=== PATIENT | male | born 1930 | race Hispanic/Latino ===

== ENCOUNTER 2017-07-11 13:58 | Emergency (ER) | payer MEDICARE, OTHER ==
--- NOTE | 2017-07-11 15:36 | Emergency Department Report ---
ED General Adult HPI - General Chief complaint: Upper Respiratory Infection Stated complaint: SICK/DARK SPUTUM Time Seen by Provider: 07/11/17 15:11 Source: EMS Mode of arrival: Ambulatory Limitations: No Limitations - History of Present Illness Initial comments: History obtained from caregiver. For the past week, patient has had a productive dark cough. Denying shortness of breath. Afebrile. His home health physician when him to come to the ER to be checked out. Denies changes in his breathing. Says that sometimes he has a tightness on the right side of his chest. It is intermittent , nonradiating, nonexertional, nonpleuritic, not affected by food. He says that he sat up for a while. Severity scale (0 -10): 0 - Related Data Home Medications Medication Instructions Recorded Confirmed Last Taken Carvedilol [Coreg] 25 mg PO BID 11/28/12 08/07/13 Unknown Gabapentin [Neurontin] 900 mg PO QPM 11/28/12 08/07/13 Unknown Levothyroxine [Synthroid] 0.75 mcg PO DAILY 11/28/12 08/07/13 Unknown Tamsulosin [Flomax] 0.8 mg PO QDAY 11/28/12 08/07/13 Unknown amLODIPine [Norvasc] 5 mg PO DAILY 11/28/12 08/07/13 Unknown Cholecalciferol (Vitamin D3) 2,000 unit PO QDAY 08/07/13 08/07/13 Unknown [Vitamin D3 2,000 unit] Ferrous Sulfate [Iron Supplement 325 mg PO DAILY 08/07/13 08/07/13 Unknown 325 Mg tab] Furosemide [Lasix] 20 mg PO DAILY 08/07/13 08/07/13 Unknown Polyethylene Glycol 3350 [Miralax 17 gm PO DAILY PRN 08/07/13 08/07/13 Unknown 3350] Potassium Chloride [K-Dur] 10 meq PO QDAY 08/07/13 08/07/13 Unknown traZODone [Desyrel] 100 mg PO QHS 08/07/13 08/07/13 Unknown Previous Rx's Medication Instructions Recorded Last Taken Type Albuterol Sulfate [Proventil HFA] 2 puff IH Q6H PRN #1 hfa.aer.ad 08/13/13 Unknown Rx Doxycycline [Vibramycin CAP] 100 mg PO BID #14 capsule 08/13/13 Unknown Rx Allergies Allergy/AdvReac Type Severity Reaction Status Date / Time No Known Allergies Allergy Unverified 11/28/12 12:31 ED Review of Systems ROS: Stated complaint: SICK/DARK SPUTUM Other details as noted in HPI Comment: All other systems reviewed and negative Respiratory: cough Cardiovascular: chest pain ED Past Medical Hx - Past Medical History Previous Medical History?: Yes Hx Hypertension: Yes Hx CVA: Yes (Right side deficit) Hx Heart Attack/AMI: No Hx Congestive Heart Failure: No Hx Diabetes: Yes Hx Deep Vein Thrombosis: No Hx Pulmonary Embolism: No Hx GERD: No Hx Liver Disease: No Hx Renal Disease: No Hx of Cancer: No Hx Sickle Cell Disease: No Hx Arthritis: No Hx Headaches / Migraines: No Hx Seizures: No Hx Kidney Stones: No Hx Psychiatric Treatment: No Hx Asthma: No Hx COPD: No Hx Tuberculosis: No Hx Dementia: No Hx HIV: No Additional medical history: Sepsis - Surgical History Past Surgical History?: No Hx Coronary Stent: No Hx Open Heart Surgery: No Hx Pacemaker: No Hx Internal Defibrillator: No Hx Cholecystectomy: No Hx Appendectomy: No Hx Breast Surgery: No - Social History Smoking Status: Former Smoker - Medications Home Medications: Home Medications Medication Instructions Recorded Confirmed Last Taken Type Carvedilol [Coreg] 25 mg PO BID 11/28/12 08/07/13 Unknown History Gabapentin [Neurontin] 900 mg PO QPM 11/28/12 08/07/13 Unknown History Levothyroxine [Synthroid] 0.75 mcg PO DAILY 11/28/12 08/07/13 Unknown History Tamsulosin [Flomax] 0.8 mg PO QDAY 11/28/12 08/07/13 Unknown History amLODIPine [Norvasc] 5 mg PO DAILY 11/28/12 08/07/13 Unknown History Cholecalciferol (Vitamin D3) 2,000 unit PO QDAY 08/07/13 08/07/13 Unknown History [Vitamin D3 2,000 unit] Ferrous Sulfate [Iron Supplement 325 mg PO DAILY 08/07/13 08/07/13 Unknown History 325 Mg tab] Furosemide [Lasix] 20 mg PO DAILY 08/07/13 08/07/13 Unknown History Polyethylene Glycol 3350 [Miralax 17 gm PO DAILY PRN 08/07/13 08/07/13 Unknown History 3350] Potassium Chloride [K-Dur] 10 meq PO QDAY 08/07/13 08/07/13 Unknown History traZODone [Desyrel] 100 mg PO QHS 08/07/13 08/07/13 Unknown History Albuterol Sulfate [Proventil HFA] 2 puff IH Q6H PRN #1 hfa.aer.ad 08/13/13 Unknown Rx Doxycycline [Vibramycin CAP] 100 mg PO BID #14 capsule 08/13/13 Unknown Rx ED Physical Exam - General Limitations: No Limitations General appearance: alert, in no apparent distress - Head Head exam: Present: atraumatic, normocephalic - Eye Eye exam: Present: normal appearance - ENT ENT exam: Present: mucous membranes moist - Neck Neck exam: Present: normal inspection - Respiratory Respiratory exam: Present: normal lung sounds bilaterally, rhonchi. Absent: respiratory distress - Cardiovascular Cardiovascular Exam: Present: regular rate, normal rhythm. Absent: systolic murmur, diastolic murmur, rubs, gallop - GI/Abdominal GI/Abdominal exam: Present: soft. Absent: tenderness - Rectal Rectal exam: Present: deferred - Extremities Exam Extremities exam: Present: normal inspection - Back Exam Back exam: Present: normal inspection - Neurological Exam Neurological exam: Present: alert, oriented X3 - Psychiatric Psychiatric exam: Present: normal affect, normal mood - Skin Skin exam: Present: warm, dry, intact, normal color. Absent: rash ED Course Vital Signs 07/11/17 14:07 Temperature 98.6 F Pulse Rate 56 L Respiratory 18 Rate Blood Pressure 143/62 Blood Pressure 143/62 [Right] O2 Sat by Pulse 98 Oximetry ED Medical Decision Making - Medical Decision Making A 7-year-old male with multiple comorbidities presents with productive cough for the past week. Patient is well-appearing. Vitals are stable. In no respiratory distress. I have ordered labs and a chest x-ray on the patient. He has been given prednisone and azithromycin. Likely patient is suffering from a mild COPD exacerbation. His lab work and imaging unremarkable, I anticipate that the patient will be sent home on a prednisone burst with azithromycin. This patient has been signed out to the oncoming physician. - Differential Diagnosis ACS, COPD exacerbation, pneumonia, sepsis, URI, bronchitis Critical care attestation.: If time is entered above; I have spent that time in minutes in the direct care of this critically ill patient, excluding procedure time. ED Disposition Clinical Impression: COPD exacerbation Disposition: Z- MED SCREENING EXAM-CONT Is pt being admited?: No Condition: Stable Instructions: Chronic Obstructive Pulmonary Disease (ED)
[2017-07-11] MEDS ORDERED: ZITHROMAX PO ONE (15:37)
[2017-07-11] MEDS ORDERED: DELTASONE PO ONE (15:37)
[2017-07-11 16:32] LABS: Basophils % (Auto) 0.3 % (0.0-1.8); Eosinophils # (Auto) 0.2 K/mm3 (0.0-0.4); Eosinophils % (Auto) 2.6 % (0.0-4.3); Hematocrit 35.7 % (35.5-45.6); Hemoglobin 12.1 gm/dl (11.8-15.2); Lymphocytes % (Auto) 13.4 % (13.4-35.0); Mean Corpuscular HGB Conc 34 % (32-34); Mean Corpuscular Hemoglobin 32 pg (28-32); Mean Corpuscular Volume 94 fl (84-94); Monocytes # (Auto) 0.6 K/mm3 (0.0-0.8); Monocytes % (Auto) 8.5 % (0.0-7.3); Platelet Count 171 K/mm3 (140-440); Red Blood Count 3.79 M/mm3 (3.65-5.03); Red Cell Distribution Width 12.5 % (13.2-15.2)
[2017-07-11 16:56] LABS: BUN/Creatinine Ratio 19; Blood Urea Nitrogen 30 mg/dL (9-20); Calcium 9.1 mg/dL (8.4-10.2); Hemolysis Index 1
--- NOTE | 2017-07-11 17:42 | XRay Report ---
FINAL REPORT PROCEDURE: XR CHEST 1V AP TECHNIQUE: Chest radiograph anteroposterior view. CPT 51060 HISTORY: shortness of breath, productive cough COMPARISON: No prior studies are available for comparison. FINDINGS: Heart: Cardiac silhouette is at the upper limit of normal in size Mediastinum/Vessels: Normal. Lungs/Pleural space: No infiltrate, effusion, or pneumothorax is seen. Bony thorax: No acute osseous abnormality. Life support devices: None. IMPRESSION: No radiographic evidence of acute abnormality.
[2017-07-11] MEDS ORDERED: NACL 0.9% 1000 ML 1,000 ML IV ONE (17:58)
[2017-07-11 20:26] LABS: Calcium 8.8 mg/dL (8.4-10.2)
--- NOTE | 2017-07-11 20:55 | Emergency Department Report ---
HPI - General Chief Complaint: Upper Respiratory Infection Time Seen by Provider: 07/11/17 15:11 - HPI HPI: Patient was signed out to me by Dr. Lopez pending labs and chest x-ray. Chest x- ray is unremarkable. However the lab showed elevated when necessary and creatinine. ED Past Medical Hx - Past Medical History Previous Medical History?: Yes Hx Hypertension: Yes Hx CVA: Yes (Right side deficit) Hx Heart Attack/AMI: No Hx Congestive Heart Failure: No Hx Diabetes: Yes Hx Deep Vein Thrombosis: No Hx Pulmonary Embolism: No Hx GERD: No Hx Liver Disease: No Hx Renal Disease: No Hx of Cancer: No Hx Sickle Cell Disease: No Hx Arthritis: No Hx Headaches / Migraines: No Hx Seizures: No Hx Kidney Stones: No Hx Psychiatric Treatment: No Hx Asthma: No Hx COPD: No Hx Tuberculosis: No Hx Dementia: No Hx HIV: No Additional medical history: Sepsis - Surgical History Past Surgical History?: No Hx Coronary Stent: No Hx Open Heart Surgery: No Hx Pacemaker: No Hx Internal Defibrillator: No Hx Cholecystectomy: No Hx Appendectomy: No Hx Breast Surgery: No - Social History Smoking Status: Former Smoker - Medications Home Medications: Home Medications Medication Instructions Recorded Confirmed Last Taken Type Carvedilol [Coreg] 25 mg PO BID 11/28/12 07/11/17 Unknown History Gabapentin [Neurontin] 300 mg PO TID 11/28/12 07/11/17 Unknown History Tamsulosin [Flomax] 0.8 mg PO QDAY 11/28/12 07/11/17 Unknown History Cholecalciferol (Vitamin D3) 2,000 unit PO QDAY 08/07/13 07/11/17 Unknown History [Vitamin D3 2,000 unit] Furosemide [Lasix] 20 mg PO DAILY 08/07/13 07/11/17 Unknown History Potassium Chloride [K-Dur] 10 meq PO QDAY 08/07/13 07/11/17 Unknown History traZODone [Desyrel] 100 mg PO QHS 08/07/13 07/11/17 Unknown History Albuterol Sulfate [Proventil HFA] 2 puff IH Q6H PRN #1 hfa.aer.ad 08/13/1307/11 Unknown Rx Ascorbic Acid [Vitamin C] 1,000 mg PO DAILY 07/11/17 07/11/17 Unknown History Aspirin [Lo-Dose Aspirin EC] 81 mg PO DAILY 07/11/17 07/11/17 Unknown History Azithromycin [Zithromax] 250 mg PO DAILY #4 tablet 07/11/17 Unknown Rx Fluticasone [Flonase] 1 spray NS QDAY 07/11/17 07/11/17 Unknown History HYDROcodone/ACETAMINOPHEN 1 each PO BID PRN 07/11/17 07/11/17 Unknown History [Hydrocodon-Acetaminophn 10-325] Ipratropium [place] [Atrovent Hfa] 12.9 gm IH TID 07/11/17 07/11/17 Unknown History Levothyroxine [Synthroid] 100 mcg PO QAM 07/11/17 07/11/17 Unknown History Meclizine [Antivert] 25 mg PO TID PRN 07/11/17 07/11/17 Unknown History Montelukast [Singulair] 10 mg PO QPM 07/11/17 07/11/17 Unknown History Multivit-Min36/Iron/Folic Acid 1 each PO DAILY 07/11/17 07/11/17 Unknown History [Geritol Complete Tablet] [place]-3 Fatty Acids/Fish Oil [Fish 1 each PO DAILY 07/11/17 07/11/17 Unknown History Oil] Prednisone 50 mg PO DAILY #4 tablet 07/11/17 Unknown Rx Tiotropium [place] [Spiriva] 18 mcg IH DAILY 07/11/17 07/11/17 Unknown History amLODIPine [Norvasc] 10 mg PO DAILY 07/11/17 07/11/17 Unknown History hydrALAZINE [Apresoline TAB] 100 mg PO BID 07/11/17 07/11/17 Unknown History ED Review of Systems ROS: Stated complaint: SICK/DARK SPUTUM Other details as noted in HPI Respiratory: cough Cardiovascular: chest pain Physical Exam - Physical Exam Vital Signs: Vital Signs 07/11/17 14:07 Temperature 98.6 F Pulse Rate 56 L Respiratory 18 Rate Blood Pressure 143/62 Blood Pressure 143/62 [Right] O2 Sat by Pulse 98 Oximetry ED Course Vital Signs 07/11/17 14:07 Temperature 98.6 F Pulse Rate 56 L Respiratory 18 Rate Blood Pressure 143/62 Blood Pressure 143/62 [Right] O2 Sat by Pulse 98 Oximetry - Reevaluation(s) Reevaluation #1: 07/11/17 20:51 I consulted with the coroner transport technician on-call Dr. Gama. He wants me to discharge patient home and patient to follow-up in his clinic tomorrow morning for further evaluation and management. ED Medical Decision Making - Lab Data Result diagrams: 07/11/17 15:54 07/11/17 19:42 Critical care attestation.: If time is entered above; I have spent that time in minutes in the direct care of this critically ill patient, excluding procedure time. ED Disposition Clinical Impression: ESTHER (acute kidney injury), Bronchitis, Generalized weakness, Physical deconditioning, COPD exacerbation Disposition: - TO HOME OR SELFCARE Is pt being admited?: No Does the pt Need Aspirin: No Condition: Stable Instructions: Chronic Obstructive Pulmonary Disease (ED), Chronic Bronchitis ( ED), Impaired Kidney Function (ED) Additional Instructions: Please follow up with the Web Administrator Dr Gama tomorrow morning. His office phone number is [phone]. Please call to make an appointment tomorrow morning. Return to the ED if your condition worsens. Prescriptions: Azithromycin [Zithromax] 250 mg PO DAILY #4 tablet Prednisone 50 mg PO DAILY #4 tablet Referrals: PRIMARY CARE, [Primary Care Provider] - 3-5 Days KIP GAMA MD [Staff Physician] - 3-5 Days Time of Disposition: 20:55
[2017-07-11 21:38] VITALS: BP 159/65
== END 2017-07-11 21:30 | disposition home or self-care (01) ==
LOC: ED 13:58
DX: J44.1 Chronic obstructive pulmonary disease with (acute) exacerbation (principal); J40 Bronchitis, not specified as acute or chronic; N17.9 Acute kidney failure, unspecified; I10 Essential (primary) hypertension; E11.9 Type 2 diabetes mellitus without complications; Z86.73 Personal history of transient ischemic attack (TIA), and cerebral infarction without residual deficits; Z87.891 Personal history of nicotine dependence
CPT/HCPCS: 36415; 71045; 80048; 84484; 85025; 93005; 93010; 96360; 99284; J7030; J7512

== ENCOUNTER 2019-03-27 16:31 | Emergency (ER) | payer MEDICARE, OTHER ==
--- NOTE | 2019-03-27 16:57 | Emergency Department Report ---
ED General Adult HPI - General Chief complaint: Urogenital-Male Stated complaint: GRION PAIN Time Seen by Provider: 03/27/19 16:55 Source: EMS Mode of arrival: Stretcher Limitations: Physical Limitation - History of Present Illness Initial comments: 89 y.o. male with PMHx of CVA, COPD on 2 L of home oxygen presents with pain in sears for one day. Patient states that he last had his Sears changed on March 21, 2019. Patient states that he has had no fever or hematuria. Patient denies any bowel or diarrhea. He denies any chest pain or shortness of breath. Patient states that the [place] catheter is causing him discomfort and he is concerned it may be against the wall of his bladder. - Related Data Home Medications Medication Instructions Recorded Confirmed Last Taken Gabapentin 300 mg PO TID 11/28/12 07/11/17 Unknown Tamsulosin [Flomax] 0.8 mg PO QDAY 11/28/12 07/11/17 Unknown carvediloL [Coreg] 25 mg PO BID 11/28/12 07/11/17 Unknown Cholecalciferol (Vitamin D3) 2,000 unit PO QDAY 08/07/13 07/11/17 Unknown [Vitamin D3 2,000 UNIT CAP] Furosemide [Lasix] 20 mg PO DAILY 08/07/13 07/11/17 Unknown Potassium Chloride [K-Dur] 10 meq PO QDAY 08/07/13 07/11/17 Unknown traZODone [Desyrel] 100 mg PO QHS 08/07/13 07/11/17 Unknown Ascorbic Acid [Vitamin C] 1,000 mg PO DAILY 07/11/17 07/11/17 Unknown Aspirin [Lo-Dose Aspirin EC] 81 mg PO DAILY 07/11/17 07/11/17 Unknown Fluticasone [Flonase] 1 spray NS QDAY 07/11/17 07/11/17 Unknown HYDROcodone/ACETAMINOPHEN 1 each PO BID PRN 07/11/17 07/11/17 Unknown [Hydrocodon-Acetaminophn 10-325] Ipratropium [place] [Atrovent Hfa] 12.9 gm IH TID 07/11/17 07/11/17 Unknown Levothyroxine [Synthroid] 100 mcg PO QAM 07/11/17 07/11/17 Unknown Meclizine [Antivert] 25 mg PO TID PRN 07/11/17 07/11/17 Unknown Montelukast [Singulair] 10 mg PO QPM 07/11/17 07/11/17 Unknown Multivit-Min36/Iron/Folic Acid 1 each PO DAILY 07/11/17 07/11/17 Unknown [Geritol Complete Tablet] [place]-3 Fatty Acids/Fish Oil [Fish 1 each PO DAILY 07/11/17 07/11/17 Unknown Oil] Tiotropium [place] [Spiriva] 18 mcg IH DAILY 07/11/17 07/11/17 Unknown amLODIPine [Norvasc] 10 mg PO DAILY 07/11/17 07/11/17 Unknown hydrALAZINE [Apresoline TAB] 100 mg PO BID 07/11/17 07/11/17 Unknown Previous Rx's Medication Instructions Recorded Last Taken Type Albuterol Sulfate [Proventil HFA] 2 puff IH Q6H PRN #1 hfa.aer.ad 08/13/13 Unknown Rx Azithromycin [Zithromax] 250 mg PO DAILY #4 tablet 07/11/17 Unknown Rx predniSONE [Prednisone] 50 mg PO DAILY #4 tablet 07/11/17 Unknown Rx Allergies Allergy/AdvReac Type Severity Reaction Status Date / Time No Known Allergies Allergy Unverified 11/28/12 12:31 ED Review of Systems ROS: Stated complaint: GRION PAIN Other details as noted in HPI Constitutional: denies: chills, fever Eyes: denies: eye pain, eye discharge, vision change ENT: denies: ear pain, throat pain Respiratory: denies: cough, shortness of breath, wheezing Cardiovascular: denies: chest pain, palpitations Endocrine: no symptoms reported Gastrointestinal: denies: abdominal pain, nausea, diarrhea Genitourinary: other (penile pain) Musculoskeletal: denies: back pain, joint swelling, arthralgia Skin: denies: rash, lesions Neurological: denies: headache, weakness, paresthesias Psychiatric: denies: anxiety, depression Hematological/Lymphatic: denies: easy bleeding, easy bruising ED Past Medical Hx - Past Medical History Hx Hypertension: Yes Hx CVA: Yes (Right side deficit) Hx Heart Attack/AMI: No Hx Congestive Heart Failure: No Hx Diabetes: Yes Hx Deep Vein Thrombosis: No Hx Pulmonary Embolism: No Hx GERD: No Hx Liver Disease: No Hx Renal Disease: No Hx Sickle Cell Disease: No Hx Arthritis: No Hx Headaches / Migraines: No Hx Seizures: No Hx Kidney Stones: No Hx Psychiatric Treatment: No Hx Asthma: No Hx COPD: No Hx Tuberculosis: No Hx Dementia: No Hx HIV: No Additional medical history: Sepsis - Surgical History Hx Coronary Stent: No Hx Open Heart Surgery: No Hx Pacemaker: No Hx Internal Defibrillator: No Hx Cholecystectomy: No Hx Appendectomy: No Hx Breast Surgery: No - Social History Smoking Status: Former Smoker - Medications Home Medications: Home Medications Medication Instructions Recorded Confirmed Last Taken Type Gabapentin 300 mg PO TID 11/28/12 07/11/17 Unknown History Tamsulosin [Flomax] 0.8 mg PO QDAY 11/28/12 07/11/17 Unknown History carvediloL [Coreg] 25 mg PO BID 11/28/12 07/11/17 Unknown History Cholecalciferol (Vitamin D3) 2,000 unit PO QDAY 08/07/13 07/11/17 Unknown History [Vitamin D3 2,000 UNIT CAP] Furosemide [Lasix] 20 mg PO DAILY 08/07/13 07/11/17 Unknown History Potassium Chloride [K-Dur] 10 meq PO QDAY 08/07/13 07/11/17 Unknown History traZODone [Desyrel] 100 mg PO QHS 08/07/13 07/11/17 Unknown History Albuterol Sulfate [Proventil HFA] 2 puff IH Q6H PRN #1 hfa.aer.ad 08/13/13 07/11/17 Unknown Rx Ascorbic Acid [Vitamin C] 1,000 mg PO DAILY 07/11/17 07/11/17 Unknown History Aspirin [Lo-Dose Aspirin EC] 81 mg PO DAILY 07/11/17 07/11/17 Unknown History Azithromycin [Zithromax] 250 mg PO DAILY #4 tablet 07/11/17 Unknown Rx Fluticasone [Flonase] 1 spray NS QDAY 07/11/17 07/11/17 Unknown History HYDROcodone/ACETAMINOPHEN 1 each PO BID PRN 07/11/17 07/11/17 Unknown History [Hydrocodon-Acetaminophn 10-325] Ipratropium [place] [Atrovent Hfa] 12.9 gm IH TID 07/11/17 07/11/17 Unknown History Levothyroxine [Synthroid] 100 mcg PO QAM 07/11/17 07/11/17 Unknown History Meclizine [Antivert] 25 mg PO TID PRN 07/11/17 07/11/17 Unknown History Montelukast [Singulair] 10 mg PO QPM 07/11/17 07/11/17 Unknown History Multivit-Min36/Iron/Folic Acid 1 each PO DAILY 07/11/17 07/11/17 Unknown History [Geritol Complete Tablet] [place]-3 Fatty Acids/Fish Oil [Fish 1 each PO DAILY 07/11/17 07/11/17 Unknown History Oil] Tiotropium [place] [Spiriva] 18 mcg IH DAILY 07/11/17 07/11/17 Unknown History amLODIPine [Norvasc] 10 mg PO DAILY 07/11/17 07/11/17 Unknown History hydrALAZINE [Apresoline TAB] 100 mg PO BID 07/11/17 07/11/17 Unknown History predniSONE [Prednisone] 50 mg PO DAILY #4 tablet 07/11/17 Unknown Rx ED Physical Exam - General Limitations: Physical Limitation General appearance: alert, other (mild distress) - Head Head exam: Present: atraumatic, normocephalic - Eye Eye exam: Present: normal appearance - ENT ENT exam: Present: mucous membranes dry - Neck Neck exam: Present: normal inspection - Respiratory Respiratory exam: Present: normal lung sounds bilaterally. Absent: respiratory distress - Cardiovascular Cardiovascular Exam: Present: regular rate, normal rhythm. Absent: systolic murmur, diastolic murmur, rubs, gallop - GI/Abdominal GI/Abdominal exam: Present: soft, normal bowel sounds - Rectal Rectal exam: Present: deferred - exam: Present: other (no scrotal swelling or reproducible tenderness in scrotal region; no erythema; sears catheter in urethra with no penile erythema) - Extremities Exam Extremities exam: Present: normal inspection - Back Exam Back exam: Present: normal inspection - Neurological Exam Neurological exam: Present: alert, oriented X3 - Psychiatric Psychiatric exam: Present: normal affect, normal mood - Skin Skin exam: Present: warm, dry, intact, normal color. Absent: rash ED Course Vital Signs 03/27/19 17:37 Pulse Rate 83 Respiratory 16 Rate Blood Pressure 162/71 [Left] O2 Sat by Pulse 98 Oximetry ED Medical Decision Making - EKG Data EKG shows normal: sinus rhythm - Medical Decision Making Patient has urinalysis that shows UTI and patient to be given ciprofloxacin upon discharge. - Differential Diagnosis UTI; Critical care attestation.: If time is entered above; I have spent that time in minutes in the direct care of this critically ill patient, excluding procedure time. ED Disposition Clinical Impression: Urinary tract infection Disposition: DC-01 TO HOME OR SELFCARE Is pt being admited?: No Does the pt Need Aspirin: No Condition: Stable Instructions: Urinary Tract Infection in Men (ED) Time of Disposition: 18:28 Print Language: GU[place]
[2019-03-27 18:12] LABS: Bilirubin,Urine NEG (Negative); Blood,Urine SM (Negative); Color,Urine Yellow (Yellow); Urobilinogen,Urine < 2.0 mg/dL (<2.0)
[2019-03-27] MEDS ORDERED: levoFLOXacin 500 MG TAB PO ONE (18:32)
[2019-03-27 23:36] VITALS: BP 147/73
== END 2019-03-27 22:58 | disposition home or self-care (01) ==
LOC: ED 16:31
DX: N39.0 Urinary tract infection, site not specified (principal); J44.9 Chronic obstructive pulmonary disease, unspecified; E11.9 Type 2 diabetes mellitus without complications; Z86.73 Personal history of transient ischemic attack (TIA), and cerebral infarction without residual deficits; Z79.899 Other long term (current) drug therapy; Z87.891 Personal history of nicotine dependence
CPT/HCPCS: 81001; 87086